=== PATIENT | female | born 1945 ===

== ENCOUNTER 2019-11-16 15:24 | Emergency (ER) | payer MEDICARE, OTHER, SELFPAY ==
[2019-11-16] VITALS (9 sets, daily range): BP systolic 128–189; BP diastolic 60–90; PULSE 60; RESP 9–19; O2SAT 95–100; BMI 25.0
--- NOTE | 2019-11-16 15:32 | DI.RAD.S_ITS ---
PROCEDURE: XR CHEST 1V INDICATIONS: chest pain TECHNIQUE: One view of the chest was acquired. COMPARISON: Merged With [facility], CR, XR CHEST 1 VIEW, 05/12/2019, 20:40. FINDINGS: Surgical changes and devices: A left-sided cardiac pacer/defibrillator is present. Lungs and pleura: Lungs are clear. No pleural effusions or pneumothorax. Mediastinum: Mediastinal contours appear normal. Heart size is normal. Bones and chest wall: No suspicious bony lesions. Overlying soft tissues appear unremarkable. IMPRESSION: No acute cardiopulmonary process is evident. Dictated by: Milton Quintero M.D. on 11/16/2019 at 15:59 Approved by: Milton Quintero M.D. on 11/16/2019 at 15:59
--- NOTE | 2019-11-16 15:37 | ED_ITS ---
HPI - Chest Pain General Chief Complaint: Chest Pain Stated Complaint: CP Time Seen by Provider: 11/16/19 15:36 Source: patient Mode of arrival: Ambulatory Limitations: no limitations History of Present Illness HPI narrative: 74-year-old female comes emergency department complaint of chest pain. Patient states that it started today at about 2:00 a.m.. She states it feels like pressure and a tightness in her chest. She also feels very heavy in her legs. She states that it does not radiate her neck back or arms. It does not radiate to her belly. She denies any abdominal discomfort. She states her legs feel sort of tingly. They felt heavy and tingly yesterday as well. She also felt very short of breath with this episode. She was just performing usual house activities such as cleaning and cooking. She denies any nausea, no vomiting. She has not had any diaphoresis today but had night sweats last night. She feels lightheaded but not like she is going to pass out. This is the 4th time she has had episodes like this. She follows with Cardiology and states her most recent perfusion stress test was in April [facility]. She states that she has diastolic dysfunction and describes possibly pulmonary hypertension and also has a pacemaker. She takes an aspirin 81 mg, losartan, potassium and Lasix daily. She has had a hip replacement as well. No tobacco she drinks alcohol sometimes a couple glasses of wine nightly but not every night. No illicit. She states she has been taking jerome doses of B12, Echinacea, turmeric, vitamin-C and vitamin D. she follows with a Dr. Rony Murray as well as Dr. Presley with Cardiology at [facility]. And her primary care is Dr. Naqvi Related Data Home Medications Medication Instructions Recorded Confirmed Fish Oil (#FISH OIL) #0 10/24/11 11/29/18 VITAMIN D (Vitamin D3) 1,000 unit PO QDAY #0 10/24/11 11/29/18 VITAMIN E (#VITAMIN E 1 ML) #0 10/24/11 11/29/18 amoxicillin 250 mg PO Q8H #0 10/24/11 11/29/18 triazolam 0.125 mg PO HSP #0 10/24/11 11/29/18 Resmed Airsense 10 CPAP #1 ea 11/29/18 11/29/18 Allergies Allergy/AdvReac Type Severity Reaction Status Date / Time No Known Drug Allergies Allergy Unverified 11/29/18 10:41 Review of Systems Review of Systems ROS Unobtainable: All systems reviewed & are unremarkable except as noted in HPI and below Patient History Medical History (Updated 12/16/19 @ 00:00 by ) Hypertension (Acute) Pacemaker (Acute) Surgical History (Updated 11/16/19 @ 16:04 by Nimco Morris DO) S/P hip replacement (Acute) Social History Smoking Status: Never smoker Smoking Status: Never smoker alcohol intake frequency: 0-2 drinks per day (sometimes more) Substance Use Type: does not use Exam Narrative Exam Narrative: GENERAL: Alert and oriented x three, well-nourished female in mild distress. HEENT: Head normocephalic, atraumatic, EOMI, pupils reactive, face symmetric, moist mucous membranes NECK: Supple, full range of motion CARDIOVASCULAR: Regular rate and rhythm without murmurs, rubs or gallops. Non reproducible chest pain. 2+ pulses bilateral lower extremities. RESPIRATORY: Breath sounds equal bilaterally, no wheezes rales or rhonchi. ABDOMEN: Soft, nontender. Normoactive bowel sounds all 4 quadrants. No guardin g or rebound, rigidity, no mass, no bruit or pulsatile mass. : No CVA tenderness EXTREMITIES: Normal range of motion, no clubbing or edema. Neurovascularly intact NEUROLOGICAL: Cranial nerves II through XII grossly intact. Moving all extremities SKIN: Warm, dry, no petechiae, no rashes or lesions. Initial Vital Signs Initial Vital Signs: Vital Signs Pulse Rate 60 11/16/19 15:29 Respiratory Rate 16 11/16/19 15:29 Blood Pressure 189/86 H 11/16/19 15:29 Pulse Oximetry 97 11/16/19 15:29 Course Orders Ordered: Discontinued Medications Morphine Sulfate (Morphine) 4 mg IV NOW ONE Stop: 11/16/19 16:48 Last Admin: 11/16/19 16:59 Dose: 4 mg Documented by: MEISENDavid Morphine Sulfate (Morphine) 4 mg IV NOW ONE Stop: 11/16/19 17:46 Last Admin: 11/16/19 17:53 Dose: 4 mg Documented by: ABHI Nitroglycerin (Nitrostat) 0.4 mg SL NOW ONE Stop: 11/16/19 16:07 Last Admin: 11/16/19 16:08 Dose: 0.4 mg Documented by: PARMJIT Vital Signs Vital signs: Vital Signs - 8 hr 11/16/19 17:16 11/16/19 18:00 11/16/19 18:30 Pulse Rate 60 60 60 Respiratory Rate 18 9 L 19 Blood Pressure [Right Arm] 139/67 139/60 145/80 H Pulse Oximetry 99 95 95 MDM - Chest Pain Lab Data Attestation: I reviewed the patient's lab results. Result diagrams: 11/16/19 15:30 11/16/19 15:30 Labs: Lab Results 11/16/19 11/16/19 11/16/19 Range/Units 15:30 15:30 15:30 WBC 5.3 (4.5-11.0) X10^3/uL RBC 3.82 L (4.0-5.2) X10^6/uL Hgb 13.1 (12.0-16.0) g/dL Hct 37.4 (36-46) % MCV 98.1 (80-100) fL MCH 34.2 H (26-34) PG MCHC 34.9 (30-36) % RDW 12.8 (11.6-14.8) % Plt Count 226 (150-400) X10^3/uL Neut % (Auto) 57.5 (50-75) % Lymph % (Auto) 29.6 (25-40) % [place] % (Auto) 10.1 (3-14) % Eos % (Auto) 2.0 (2-4) % Baso % (Auto) 0.8 (0-2) % Neut # (Auto) 3100 (2165-0707) /uL Lymph # (Auto) 1600 (8965-5486) /uL [place] # (Auto) 500 (0-900) /uL Eos # (Auto) 100 (0-450) /uL Baso # (Auto) 0 (0-100) /uL PT 10.9 (10.1-12.7) SECONDS INR 1.0 (0.9-1.3) APTT 35 (26.4-36.2) SECONDS D-Dimer (<230) ng/mL Sodium 132 L (137-145) mmol/L Potassium 3.7 (3.4-5.1) mmol/L Chloride 97 L (98-107) mmol/L Carbon Dioxide 28 (22-32) mmol/L BUN 13 (7-17) mg/dL Creatinine 0.69 (0.52-1.04) mg/dL Estimated GFR > 60.0 (>60) mL/min BUN/Creatinine Ratio 18.8 (6-22) Glucose 101 (80-110) mg/dL Calcium 9.6 (8.4-10.2) mg/dL Total Bilirubin 0.4 (0.2-1.3) mg/dL AST 33 (14-36) IU/L ALT 20 (<35) IU/L Alkaline Phosphatase 94 (38-126) U/L Total Creatine Kinase 171 H (30-135) U/L CK-MB (CK-2) 3.17 H (<2.37) ng/mL CK-MB (CK-2) Rel Index 1.9 (1.5-5.0) % Troponin I < 0.012 (0.01-0.034) ng/mL Total Protein 7.6 (6.3-8.2) g/dL Albumin 4.5 (3.5-5.0) g/dL Globulin 3.1 (1.7-4.1) g/dL Albumin/Globulin Ratio 1.5 (1.0-2.8) Lipase 183 (23-300) U/L Urine Color Urine Appearance Urine pH (4.5-8.0) Ur Specific [place] (1.000-1.035) Urine Protein (Negative) Urine Glucose (UA) (Negative) g/dL Urine Ketones (NEGATIVE) Urine Occult Blood (Negative) Urine Nitrate (Negative) Urine Bilirubin (NEGATIVE) Urine Urobilinogen (0.2) E.U./dL Ur Leukocyte Esterase (NEGATIVE) Urine RBC (0-5/HPF) Urine WBC (0-5/HPF) Ur Squamous Epith Cells (0-5/HPF) Urine Bacteria (None) Ur Culture Indicated? 11/16/19 11/16/19 11/16/19 Range/Units 15:30 17:11 17:50 WBC (4.5-11.0) X10^3/uL RBC (4.0-5.2) X10^6/uL Hgb (12.0-16.0) g/dL Hct (36-46) % MCV (80-100) fL MCH (26-34) PG MCHC (30-36) % RDW (11.6-14.8) % Plt Count (150-400) X10^3/uL Neut % (Auto) (50-75) % Lymph % (Auto) (25-40) % [place] % (Auto) (3-14) % Eos % (Auto) (2-4) % Baso % (Auto) (0-2) % Neut # (Auto) (2427-9227) /uL Lymph # (Auto) (6430-9676) /uL [place] # (Auto) (0-900) /uL Eos # (Auto) (0-450) /uL Baso # (Auto) (0-100) /uL PT (10.1-12.7) SECONDS INR (0.9-1.3) APTT (26.4-36.2) SECONDS D-Dimer < 200 (<230) ng/mL Sodium (137-145) mmol/L Potassium (3.4-5.1) mmol/L Chloride (98-107) mmol/L Carbon Dioxide (22-32) mmol/L BUN (7-17) mg/dL Creatinine (0.52-1.04) mg/dL Estimated GFR (>60) mL/min BUN/Creatinine Ratio (6-22) Glucose (80-110) mg/dL Calcium (8.4-10.2) mg/dL Total Bilirubin (0.2-1.3) mg/dL AST (14-36) IU/L ALT (<35) IU/L Alkaline Phosphatase (38-126) U/L Total Creatine Kinase 142 H (30-135) U/L CK-MB (CK-2) 3.09 H (<2.37) ng/mL CK-MB (CK-2) Rel Index 2.2 (1.5-5.0) % Troponin I < 0.012 (0.01-0.034) ng/mL Total Protein (6.3-8.2) g/dL Albumin (3.5-5.0) g/dL Globulin (1.7-4.1) g/dL Albumin/Globulin Ratio (1.0-2.8) Lipase (23-300) U/L Urine Color Yellow Urine Appearance Clear Urine pH 7.0 (4.5-8.0) Ur Specific [place] <=1.005 (1.000-1.035) Urine Protein Negative (Negative) Urine Glucose (UA) Negative (Negative) g/dL Urine Ketones Negative (NEGATIVE) Urine Occult Blood Negative (Negative) Urine Nitrate Negative (Negative) Urine Bilirubin Negative (NEGATIVE) Urine Urobilinogen 0.2 (0.2) E.U./dL Ur Leukocyte Esterase Negative (NEGATIVE) Urine RBC 0-1/hpf (0-5/HPF) Urine WBC None seen (0-5/HPF) Ur Squamous Epith Cells 0-1 /hpf (0-5/HPF) Urine Bacteria Occasional (0-1) (None) Ur Culture Indicated? Cult not indicated ECG Data Attestation: I personally reviewed and interpreted this ECG as follows: Prior ECG tracings: available for review Interpretation: Atrial paced rhythm with a rate of 60 NE 230 QRS of 116 and QTC of 427. Patient has inverted T-waves in lead 3 slightly in AVF. Patient has a prior EKG from 10/24/2011 which does not appear to be paced. V2 V3 do. Different although other leads appears similar. Repeat EKG is atrial paced rhythm with a rate of 59, NE 214 QRS 146 and QTC of 476. Patient does appear to have some elevation in 1 and aVL. As well as late ral leads V1 through V4 this does appear different than patient's prior paced rhythm here in the department MDM Narrative Medical decision making narrative: Patient comes in with complaint of chest pain, she states her blood pressures been elevated today in the 180 range. She also states it has been elevated recently as high as 150 at home. She has not had any new medication changes. She had aspirin 81 mg at home this morning so was given additional three aspirin for total of 324 mg and nitrosublingual x2 on recheck, no improvement and patient states it is worse. Given morphine 4mg IV and patient had some resolution but then returned after a period of time, legs still feel heavy. BP has improved during ER stay after nitro SL. Initial labs show negative troponin, atrial paced rhythm, Na is 132, with Total CK being 171 anc CK-MB 3.17 and troponin is negative. CXR shows no acute process. Able to obtain records from [facility] and patient had EKG 05/12/12 that appears similar. Call out to Dr. Howell, we reviewed patient's repeat EKG shows ST changes but is atrial paced rhythm. Patient has had improvement of chest pain but not resolution at this time. Dr. Howell reviewed patient's EKG. She suspect that patient dropped below her normal sinus rhythm and that this is why it appears different. She notes that the very last beat on the 2nd EKG is again narrow, with completely different axis, positive AVR with a wide complex and she suspects that this is because it is now pacing from a more ventricular rhythm. We discussed if she has 2 negative troponins with a perfusion stress test in April that she does not feel patient likely requires cardiac observation and would recommend discharge home with oral medication for pain. Discussed with patient, she was offered Imdur at last hospitalization but based on today's episode of worsening pain we both defer. We did discuss that cardiac risk is still present although felt to be less likely at this time. EKG changes were reviewed and that they were felt to be from changing from an atrial to ventricular paced rhythm after cardiology reviewed and not felt to be ischemic. Patient and I discussed return precautions. She has two separate cardiology services that she has followed with and recommended to have close follow up with either service of her choice. Discharge Plan Departure Patient Disposition: Home Clinical Impression: Chest pain Discharge Date/Time: 11/16/19 19:15 Instructions: DI for Chest Pain Activity Restrictions/Additional Instructions: Follow up with your [facility] [employer], call Monday for an appointment. Your EKG, labs and findings today were reviewed with cardiology. Continue your home medications as prescribed. You may take tylenol up to 1000mg every 8 hours as needed for pain. Return to ER for fevers greater than 100.4F, new chest pain or changing chest pain, shortness of breath, passing out, swelling in your extremities, persistent vomiting or other new or concerning symptoms. Prescriptions: No Action amoxicillin 250 MG capsule 250 mg PO Q8H Qty: 0 RF: 0 VITAMIN D (Vitamin D3) 1,000 unit PO QDAY Qty: 0 RF: 0 VITAMIN E (#VITAMIN E 1 ML) Qty: 0 RF: 0 triazolam 0.125 MG tablet 0.125 mg PO HSP Qty: 0 RF: 0 Fish Oil (#FISH OIL) Qty: 0 RF: 0 (DME) Resmed Airsense 10 CPAP Qty: 1 RF: 0 Referrals: Severino Presley MD [Physician] - Robinson Corbin MD [Primary Care Provider] -
[2019-11-16 15:39] LABS: Add Manual Diff / Slide Review NO; Basophils Absolute Auto 0 /uL (0-100); Basophils Percent Auto 0.8 % (0-2); Eosinophils Absolute Auto 100 /uL (0-450); Hematocrit 37.4 % (36-46); Hemoglobin 13.1 g/dL (12.0-16.0); Lymphocytes Absolute Auto 1600 /uL (1100-4500); Lymphocytes Percent Auto 29.6 % (25-40); Mean Corpuscular HGB Conc 34.9 % (30-36); Mean Corpuscular Hemoglobin 34.2 PG (26-34); Mean Corpuscular Volume 98.1 fL (80-100); Monocytes Absolute Auto 500 /uL (0-900); Monocytes Percent Auto 10.1 % (3-14); Neutrophils Absolute Auto 3100 /uL (1500-7000); Neutrophils Percent Auto 57.5 % (50-75); Platelet Count 226 X10^3/uL (150-400); Red Blood Cell Count 3.82 X10^6/uL (4.0-5.2); Red Cell Distribution Width 12.8 % (11.6-14.8); White Blood Cell Count 5.3 X10^3/uL (4.5-11.0)
[2019-11-16 15:44] LABS: Prothrombin Time 10.9 SECONDS (10.1-12.7)
[2019-11-16 15:46] LABS: PTT Partial Thromboplastin Tim 35 SECONDS (26.4-36.2)
--- NOTE | 2019-11-16 15:52 | PC.NURSE ---
chest discomfort with lower leg heaviness
[2019-11-16 15:59] LABS: Alanine Aminotransferase 20 IU/L (<35); Albumin 4.5 g/dL (3.5-5.0); Albumin Globulin Ratio 1.5 (1.0-2.8); Alkaline Phosphatase 94 U/L (38-126); Aspartate Aminotransferase 33 IU/L (14-36); BUN Creatinine Ratio 18.8 (6-22); Bilirubin Total 0.4 mg/dL (0.2-1.3); Blood Urea Nitrogen 13 mg/dL (7-17); Calcium 9.6 mg/dL (8.4-10.2); Carbon Dioxide 28 mmol/L (22-32); Chloride 97 mmol/L (98-107); Creatine Kinase 171 U/L (30-135); Estimated Glomerular Filt Rate > 60.0 mL/min (>60); Globulin 3.1 g/dL (1.7-4.1); Glucose 101 mg/dL (80-110); HEMOLYSIS 16 (0-50); Lipase 183 U/L (23-300); Potassium 3.7 mmol/L (3.4-5.1); Sodium 132 mmol/L (137-145); Total Protein 7.6 g/dL (6.3-8.2)
[2019-11-16] MEDS: NITROGLYCERIN 0.4 MG SL TAB SL ×2 (16:02→16:08)
[2019-11-16] MEDS: ASPIRIN 81 MG CHEW TAB 243 MG (16:02)
[2019-11-16 16:11] LABS: Troponin I < 0.012 ng/mL (0.01-0.034)
[2019-11-16 16:14] LABS: CKMB % Relative Index 1.9 % (1.5-5.0); Creatine Kinase MB 3.17 ng/mL (<2.37)
[2019-11-16] MEDS: MORPHINE 4 MG/ML INJ IV ×2 (16:59→17:53)
[2019-11-16 17:00] LABS: D Dimer < 200 ng/mL (<230)
[2019-11-16 17:26] LABS: Appearance Urine UA CLEAR; Bilirubin Urine UA NEGATIVE (NEGATIVE); Color Urine UA YELLOW; Glucose Urine UA NEGATIVE (Negative); Ketones Urine UA NEGATIVE (NEGATIVE); Leukocyte Esterase Urine UA NEGATIVE (NEGATIVE); Nitrite Urine UA NEGATIVE (Negative); Occult Blood Urine UA NEGATIVE (Negative); Protein Urine UA NEGATIVE (Negative); Specific Gravity Urine UA <=1.005 (1.000-1.035); Urobilinogen Urine UA 0.2 E.U./dL (0.2); WBC Urine None Seen (0-5/HPF)
[2019-11-16 17:42] LABS: Bacteria Urine Occasional (0-1); Culture Indicated Urine Cult Not Indicated; RBC Urine 0-1/HPF (0-5/HPF); Squamous Epithelial Cell Urine 0-1 /HPF (0-5/HPF)
--- NOTE | 2019-11-16 17:50 | PC.NURSE ---
states morphine helped, but still has the sensation heaviness lower legs. dr waters made are.
[2019-11-16 18:11] LABS: Creatine Kinase 142 U/L (30-135)
[2019-11-16 18:23] LABS: Troponin I < 0.012 ng/mL (0.01-0.034)
[2019-11-16 18:26] LABS: CKMB % Relative Index 2.2 % (1.5-5.0); Creatine Kinase MB 3.09 ng/mL (<2.37)
== END 2019-11-16 19:15 | disposition home or self-care (01) ==
PROVIDERS: Emergency Provider Emergency Medicine; PCP Family Medicine
DX: R07.9 Chest pain, unspecified (principal); Z95.0 Presence of cardiac pacemaker; I10 Essential (primary) hypertension
CPT/HCPCS: 36415; 71045; 80053; 81001; 82550; 82553; 83690; 84484; 85025; 85379; 85610; 85730; 93005; 96374; 96376; 99284; J2270

== ENCOUNTER 2019-12-01 18:00 | Emergency (ER) | payer MEDICARE, OTHER, SELFPAY ==
[2019-12-01 18:07] VITALS: BP 170/83; PULSE 69; RESP 16; TEMP 36.9; O2SAT 99
--- NOTE | 2019-12-01 18:11 | DI.RAD.S_ITS ---
PROCEDURE: XR CHEST 1V INDICATIONS: chest pain TECHNIQUE: One view of the chest was acquired. COMPARISON: [facility], CR, XR CHEST 1V, 11/16/2019, 16:10. FINDINGS: Surgical changes and devices: Left-sided pacemaker. Lungs and pleura: Lungs are clear. No pleural effusions or pneumothorax. Mediastinum: Mediastinal contours appear normal. Heart size is normal. Bones and chest wall: No suspicious bony lesions. Overlying soft tissues appear unremarkable. IMPRESSION: No acute cardiopulmonary disease. Dictated by: Betty Barrera M.D. on 12/01/2019 at 20:32 Approved by: Betty Barrera M.D. on 12/01/2019 at 20:33
--- NOTE | 2019-12-01 18:22 | ED.CHESTPAIN ---
HPI - Chest Pain General Chief Complaint: Chest Pain Stated Complaint: states blood pressure spikes elevated, CP Time Seen by Provider: 12/01/19 18:05 Source: patient Mode of arrival: Ambulatory Limitations: no limitations History of Present Illness HPI narrative: 74-year-old female. 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 She states that approximately 1 month ago she had a urinary tract infection which caused her blood pressure despite. She was treated with antibiotics. She is unsure the exact name of the antibiotic which he states he was either Cipro or Keflex. She stated this caused her blood pressure to spike at that time. States that today symptoms started again. She has a home urine tests which is stated that she potentially had a urinary tract infection. She also noticed that her blood pressure was spiking today and also having some chest discomfort. Related Data Home Medications Medication Instructions Recorded Confirmed Fish Oil (#FISH OIL) #0 10/24/11 11/29/18 VITAMIN D (Vitamin D3) 1,000 unit PO QDAY #0 10/24/11 11/29/18 VITAMIN E (#VITAMIN E 1 ML) #0 10/24/11 11/29/18 amoxicillin 250 mg PO Q8H #0 10/24/11 11/29/18 triazolam 0.125 mg PO HSP #0 10/24/11 11/29/18 Resmed Airsense 10 CPAP #1 ea 11/29/18 11/29/18 Previous Rx's Medication Instructions Recorded ciprofloxacin HCl 250 mg PO BID 3 Days #6 tab 12/01/19 Allergies Allergy/AdvReac Type Severity Reaction Status Date / Time No Known Drug Allergies Allergy Unverified 11/29/18 10:41 Review of Systems Constitutional Constitutional: Denies fever(s) and Denies headache(s) ENT Ears, Nose, Mouth, and Throat: Denies headache(s) Cardiovascular Cardiovascular: Reports chest pain and Denies dyspnea Respiratory Respiratory: Denies dyspnea Gastrointestinal Gastrointestinal: Denies abdominal pain, Denies nausea and Denies vomiting Genitourinary Genitourinary: Reports dysuria Musculoskeletal Musculoskeletal: Denies myalgias and Denies arthralgias Integumentary/Breasts Skin/Breast: Denies rash Neurologic Neurologic: Denies behavioral changes and Denies headache(s) Psychiatric Psychiatric: Denies behavioral changes Hematologic/Lymphatic Hematologic/Lymphatic: Denies easy bleeding and Denies easy bruising Patient History Medical History Hypertension (Acute) Pacemaker (Acute) Surgical History (Updated 11/16/19 @ 16:04 by Nimco Morris DO) S/P hip replacement (Acute) Social History Smoking Status: Never smoker Smoking Status: Never smoker alcohol intake frequency: 0-2 drinks per day Substance Use Type: does not use Exam Initial Vital Signs Initial Vital Signs: Vital Signs Temperature 98.4 F 12/01/19 18:07 Pulse Rate 69 12/01/19 18:07 Respiratory Rate 16 12/01/19 18:07 Blood Pressure 170/83 H 12/01/19 18:07 Pulse Oximetry 99 12/01/19 18:07 Const General: cooperative, comfortable, well developed and well groomed Limitations: mental status not altered HENCT Head: normal to inspection and normocephalic Resp Effort & Inspection: normal respiratory effort Auscultation: clear to auscultation bilaterally Cardio Rate: regular rate Rhythm: regular rhythm Skin Lesions: no lesions Rashes: no rashes Neuro General: alert, awake and oriented x3 Cognition: normal cognition Speech: speech normal Extrem General: normal to inspection and capillary refill normal Psych Appearance: grossly normal and well kempt Scores GCS [place] coma scale eye opening: Spontaneous [place] coma scale verbal response: Orientated [place] coma scale motor response: Obey commands [place] coma scale total score: 15 Course Orders Ordered: ED Orders 12/01/19 18:11 XR chest 1V Stat EKG-12 Lead Stat 12/01/19 18:36 Complete Blood Count AUTO DIFF Stat Comprehensive Metabolic Panel Stat Lipase Stat Troponin & CK Cardiac Panel Stat 12/01/19 20:52 Urinalysis and Microscopic Stat Urine Culture Stat 12/01/19 21:27 Troponin I Stat Discontinued Medications Aspirin (Aspirin Chew) 324 mg PO NOW ONE Stop: 12/01/19 18:12 Last Admin: 12/01/19 19:37 Dose: 243 mg Documented by: ALISHA Ciprofloxacin (Cipro) 250 mg PO NOW ONE Stop: 12/01/19 22:24 Last Admin: 12/01/19 22:31 Dose: 250 mg Documented by: ALISHA Sodium Chloride (Normal Saline 0.9%) 1,000 mls @ 150 mls/hr IV CONT CORNELIUS Last Infusion: 12/01/19 22:34 Dose: 150 mls/hr Documented by: Admin: 12/01/19 19:38 Dose: 150 mls/hr Documented by: ALISHA Vital Signs Vital signs: Vital Signs - 8 hr 12/01/19 18:07 12/01/19 18:30 12/01/19 20:00 Temperature 98.4 F Pulse Rate 69 60 60 Respiratory Rate 16 15 16 Blood Pressure 170/83 H Blood Pressure [Left Arm] 159/93 H 176/84 H Pulse Oximetry 99 100 100 12/01/19 20:46 12/01/19 22:00 Temperature Pulse Rate 60 60 Respiratory Rate 14 18 Blood Pressure Blood Pressure [Left Arm] 164/79 H 139/68 Pulse Oximetry 98 98 MDM - Chest Pain Medical Records Data Attestation: I reviewed the patient's medical records. Lab Data Attestation: I reviewed the patient's lab results. Result diagrams: 12/01/19 18:36 12/01/19 18:36 Labs: Lab Results 12/01/19 12/01/19 12/01/19 Range/Units 18:36 18:36 20:52 WBC 6.0 (4.5-11.0) X10^3/uL RBC 3.85 L (4.0-5.2) X10^6/uL Hgb 13.3 (12.0-16.0) g/dL Hct 38.2 (36-46) % MCV 99.1 (80-100) fL MCH 34.5 H (26-34) PG MCHC 34.8 (30-36) % RDW 12.6 (11.6-14.8) % Plt Count 227 (150-400) X10^3/uL Neut % (Auto) 65.3 (50-75) % Lymph % (Auto) 23.8 L (25-40) % [place] % (Auto) 7.8 (3-14) % Eos % (Auto) 2.2 (2-4) % Baso % (Auto) 0.9 (0-2) % Neut # (Auto) 3900 (1403-8818) /uL Lymph # (Auto) 1400 (4213-7834) /uL [place] # (Auto) 500 (0-900) /uL Eos # (Auto) 100 (0-450) /uL Baso # (Auto) 100 (0-100) /uL Sodium 137 (137-145) mmol/L Potassium 3.9 (3.4-5.1) mmol/L Chloride 105 (98-107) mmol/L Carbon Dioxide 26 (22-32) mmol/L BUN 16 (7-17) mg/dL Creatinine 0.84 (0.52-1.04) mg/dL Estimated GFR > 60.0 (>60) mL/min BUN/Creatinine Ratio 19.0 (6-22) Glucose 106 (80-110) mg/dL Calcium 9.3 (8.4-10.2) mg/dL Total Bilirubin 0.4 (0.2-1.3) mg/dL AST 22 (14-36) IU/L ALT 17 (<35) IU/L Alkaline Phosphatase 91 (38-126) U/L Total Creatine Kinase 52 (30-135) U/L CK-MB (CK-2) TNP CK-MB (CK-2) Rel Index TNP Troponin I < 0.012 (0.01-0.034) ng/mL Total Protein 7.1 (6.3-8.2) g/dL Albumin 4.1 (3.5-5.0) g/dL Globulin 3.0 (1.7-4.1) g/dL Albumin/Globulin Ratio 1.4 (1.0-2.8) Lipase 111 (23-300) U/L Urine Color Yellow Urine Appearance Slightly cloudy Urine pH 6.0 (4.5-8.0) Ur Specific [place] 1.015 (1.000-1.035) Urine Protein Negative (Negative) Urine Glucose (UA) Negative (Negative) g/dL Urine Ketones Trace H (NEGATIVE) Urine Occult Blood Trace-lysed (Negative) Urine Nitrate Positive H (Negative) Urine Bilirubin Negative (NEGATIVE) Urine Urobilinogen 0.2 (0.2) E.U./dL Ur Leukocyte Esterase 1+ H (NEGATIVE) Urine RBC 0-1/hpf (0-5/HPF) Urine WBC 10-30/hpf H (0-5/HPF) Ur Squamous Epith Cells 0-1 /hpf (0-5/HPF) Urine Bacteria Many (>30) H (None) Ur Culture Indicated? Specimen cultured 12/01/19 Range/Units 21:27 WBC (4.5-11.0) X10^3/uL RBC (4.0-5.2) X10^6/uL Hgb (12.0-16.0) g/dL Hct (36-46) % MCV (80-100) fL MCH (26-34) PG MCHC (30-36) % RDW (11.6-14.8) % Plt Count (150-400) X10^3/uL Neut % (Auto) (50-75) % Lymph % (Auto) (25-40) % [place] % (Auto) (3-14) % Eos % (Auto) (2-4) % Baso % (Auto) (0-2) % Neut # (Auto) (6094-5735) /uL Lymph # (Auto) (3436-6693) /uL [place] # (Auto) (0-900) /uL Eos # (Auto) (0-450) /uL Baso # (Auto) (0-100) /uL Sodium (137-145) mmol/L Potassium (3.4-5.1) mmol/L Chloride (98-107) mmol/L Carbon Dioxide (22-32) mmol/L BUN (7-17) mg/dL Creatinine (0.52-1.04) mg/dL Estimated GFR (>60) mL/min BUN/Creatinine Ratio (6-22) Glucose (80-110) mg/dL Calcium (8.4-10.2) mg/dL Total Bilirubin (0.2-1.3) mg/dL AST (14-36) IU/L ALT (<35) IU/L Alkaline Phosphatase (38-126) U/L Total Creatine Kinase (30-135) U/L CK-MB (CK-2) CK-MB (CK-2) Rel Index Troponin I < 0.012 (0.01-0.034) ng/mL Total Protein (6.3-8.2) g/dL Albumin (3.5-5.0) g/dL Globulin (1.7-4.1) g/dL Albumin/Globulin Ratio (1.0-2.8) Lipase (23-300) U/L Urine Color Urine Appearance Urine pH (4.5-8.0) Ur Specific [place] (1.000-1.035) Urine Protein (Negative) Urine Glucose (UA) (Negative) g/dL Urine Ketones (NEGATIVE) Urine Occult Blood (Negative) Urine Nitrate (Negative) Urine Bilirubin (NEGATIVE) Urine Urobilinogen (0.2) E.U./dL Ur Leukocyte Esterase (NEGATIVE) Urine RBC (0-5/HPF) Urine WBC (0-5/HPF) Ur Squamous Epith Cells (0-5/HPF) Urine Bacteria (None) Ur Culture Indicated? Imaging Data Chest x-ray: Radiologist's Impression: [address] [id number] XRay Report Signed Patient: Talita Alejo EMR#: [id number] : 6Acct:[id number] Age/Sex: 74 / FDate of Service: 12/01/19 Loc: ED Accession Number: [id number] Procedure: XR chest 1V Ordering Provider: Layo Lancaster D.O. PROCEDURE: XR CHEST 1V INDICATIONS: chest pain TECHNIQUE: One view of the chest was acquired. COMPARISON: [facility], [place], XR CHEST 1V, 11/16/2019, 16:10. FINDINGS: Surgical changes and devices: Left-sided pacemaker. Lungs and pleura: Lungs are clear. No pleural effusions or pneumothorax. Mediastinum: Mediastinal contours appear normal. Heart size is normal. Bones and chest wall: No suspicious bony lesions. Overlying soft tissues appear unremarkable. IMPRESSION: No acute cardiopulmonary disease. Dictated by: Betty Barrera M.D. on 12/01/2019 at 20:32 Approved by: Betty Barrera M.D. on 12/01/2019 at 20:33 ECG Data Attestation: I personally reviewed and interpreted this ECG as follows: Prior ECG tracings: not available for review Interpretation: Atrially paced Ventricular rate is 60 Left axis deviation QRS 109 milliseconds Incomplete right bundle-branch block Normal QTC No ST T wave changes MDM Narrative Medical decision making narrative: Troponin negative, EKG nonischemic, chest x-rays negative, we interrogated her pacemaker and other than a few less than 2nd runs of SVT you on November 21 and pacemaker appears to be and acting appropriately. Discussed the case with Dr. Presley who is on-call for Cardiology and also the patient's osteopathy doctor. He did recommend adding a 1/2 tablet of her blood pressure medication to her regiment. Patient also has nitrite positive urine. Review the patient's lab does not show a prior urine culture. She thinks that she was on Keflex during her prior treatment but also thinks that she potentially was on Cipro or at least has had Cipro in the past. She states she would like to try Cipro this time as the Keflex did not seem to help her symptoms since her urinary tract infection returned. Urine culture was pending at the time of her discharge. She was instructed we would contact her if we needed to switch antibiotics. She was given return precautions and follow-up instructions. She expressed understanding and agreement. Discharge Plan Departure Patient Disposition: Home Clinical Impression: Hypertension Qualifiers: Hypertension type: unspecified Qualified Code(s): I10 - Essential (primary) hypertension Urinary tract infection Qualifiers: Urinary tract infection type: acute cystitis Hematuria presence: without hematuria Qualified Code(s): N30.00 - Acute cystitis without hematuria Discharge Date/Time: 12/01/19 22:40 Instructions: Essential Hypertension, DI for Urinary Tract Infection (UTI) Activity Restrictions/Additional Instructions: Dr. Presley office will call you with regard to further workup of your high blood pressure and the other cardiac symptoms you are having. He did recommend that you increase your blood pressure medication to 1 pill in the morning and 1/2 pill in the afternoon. Also take the antibiotics as directed. A urine culture is pending at the time of your discharge. We will call you if we need to change any antibiotics. Return to the emergency department for any new or worsening symptoms Prescriptions: New ciprofloxacin HCl 250 mg tablet 250 mg PO BID 3 Days Qty: 6 RF: 0 No Action amoxicillin 250 MG capsule 250 mg PO Q8H Qty: 0 RF: 0 VITAMIN D (Vitamin D3) 1,000 unit PO QDAY Qty: 0 RF: 0 VITAMIN E (#VITAMIN E 1 ML) Qty: 0 RF: 0 triazolam 0.125 MG tablet 0.125 mg PO HSP Qty: 0 RF: 0 Fish Oil (#FISH OIL) Qty: 0 RF: 0 (DME) Resmed Airsense 10 CPAP Qty: 1 RF: 0 Referrals: Robinson Corbin MD [Primary Care Provider] -
[2019-12-01 18:30] VITALS: BP 159/93; PULSE 60; RESP 15; O2SAT 100
[2019-12-01 18:53] LABS: Add Manual Diff / Slide Review NO; Basophils Absolute Auto 100 /uL (0-100); Basophils Percent Auto 0.9 % (0-2); Eosinophils Absolute Auto 100 /uL (0-450); Eosinophils Percent Auto 2.2 % (2-4); Hematocrit 38.2 % (36-46); Hemoglobin 13.3 g/dL (12.0-16.0); Lymphocytes Absolute Auto 1400 /uL (1100-4500); Lymphocytes Percent Auto 23.8 % (25-40); Mean Corpuscular HGB Conc 34.8 % (30-36); Mean Corpuscular Hemoglobin 34.5 PG (26-34); Mean Corpuscular Volume 99.1 fL (80-100); Monocytes Absolute Auto 500 /uL (0-900); Monocytes Percent Auto 7.8 % (3-14); Neutrophils Absolute Auto 3900 /uL (1500-7000); Neutrophils Percent Auto 65.3 % (50-75); Platelet Count 227 X10^3/uL (150-400); Red Blood Cell Count 3.85 X10^6/uL (4.0-5.2); Red Cell Distribution Width 12.6 % (11.6-14.8)
[2019-12-01 19:05] LABS: Alanine Aminotransferase 17 IU/L (<35); Albumin 4.1 g/dL (3.5-5.0); Albumin Globulin Ratio 1.4 (1.0-2.8); Alkaline Phosphatase 91 U/L (38-126); Aspartate Aminotransferase 22 IU/L (14-36); Bilirubin Total 0.4 mg/dL (0.2-1.3); Blood Urea Nitrogen 16 mg/dL (7-17); Calcium 9.3 mg/dL (8.4-10.2); Carbon Dioxide 26 mmol/L (22-32); Chloride 105 mmol/L (98-107); Creatine Kinase 52 U/L (30-135); Estimated Glomerular Filt Rate > 60.0 mL/min (>60); Glucose 106 mg/dL (80-110); HEMOLYSIS < 15 (0-50); Lipase 111 U/L (23-300); Potassium 3.9 mmol/L (3.4-5.1); Sodium 137 mmol/L (137-145); Total Protein 7.1 g/dL (6.3-8.2)
[2019-12-01 19:17] LABS: Troponin I < 0.012 ng/mL (0.01-0.034)
[2019-12-01] MEDS: ASPIRIN 81 MG CHEW TAB 324 MG PO (19:37)
[2019-12-01] MEDS: SODIUM CHLORIDE 0.9% 1,000 ML 150 ML IV (19:38)
[2019-12-01 20:00] VITALS: BP 176/84; PULSE 60; RESP 16; O2SAT 100
[2019-12-01 20:46] VITALS: BP 164/79; PULSE 60; RESP 14; O2SAT 98
[2019-12-01 21:14] LABS: Bilirubin Urine UA NEGATIVE (NEGATIVE); Color Urine UA YELLOW; Glucose Urine UA NEGATIVE (Negative); Ketones Urine UA TRACE (NEGATIVE); Leukocyte Esterase Urine UA 1+ (NEGATIVE); Nitrite Urine UA POSITIVE (Negative); Occult Blood Urine UA TRACE-LYSED (Negative); Protein Urine UA NEGATIVE (Negative); Specific Gravity Urine UA 1.015 (1.000-1.035); Urobilinogen Urine UA 0.2 E.U./dL (0.2)
[2019-12-01 21:15] LABS: Appearance Urine UA Slightly Cloudy
[2019-12-01 21:20] LABS: Bacteria Urine Many (>30); RBC Urine 0-1/HPF (0-5/HPF); Squamous Epithelial Cell Urine 0-1 /HPF (0-5/HPF); WBC Urine 10-30/HPF (0-5/HPF)
[2019-12-01 21:21] LABS: Culture Indicated Urine Specimen Cultured
[2019-12-01 22:00] VITALS: BP 139/68; PULSE 60; RESP 18; O2SAT 98
[2019-12-01 22:06] LABS: Troponin I < 0.012 ng/mL (0.01-0.034)
[2019-12-01] MEDS: CIPROFLOXACIN 250 MG TABLET PO (22:31)
== END 2019-12-01 22:40 | disposition home or self-care (01) ==
PROVIDERS: Emergency Provider Emergency Medicine; PCP Family Medicine
DX: I10 Essential (primary) hypertension (principal); N30.00 Acute cystitis without hematuria; Z95.0 Presence of cardiac pacemaker; R07.9 Chest pain, unspecified
CPT/HCPCS: 36415; 71045; 80053; 81001; 82550; 83690; 84484; 85025; 87077; 87086; 87186; 93005; 93010; 96360; 96361; 99284